=== PATIENT | female | born 1990 | race Caucasian/White ===

== ENCOUNTER → 2018-09-21 | Outpatient (CLI) | payer BC ==
[~2018-09-21] VITALS: Ht 170.2 cm; Wt 147.6 kg
[~2018-09-21] MED LIST: LEXAPRO 10MG10 MG PO; MICRONASE2.5 MG PO; MOTRIN 600600 MG/TAB PO; PERCOCET 325 MG1 TA2 PO; PRENATAL VITAMI1 TA3 PO; PRENATAL1 TA1 PO
[2018-09-21 10:22] VITALS: BP 116/72; PULSE 80
== END ==
LOC: LIGHT 09:54
DX: Z76.89 Persons encountering health services in other specified circumstances (principal); E66.01 Morbid (severe) obesity due to excess calories; Z68.43 Body mass index [BMI] 50.0-59.9, adult; Z71.3 Dietary counseling and surveillance
CPT/HCPCS: G0463

== ENCOUNTER → 2018-10-10 | Outpatient (CLI) | payer BC ==
[~2018-10-10] VITALS: Ht 170.2 cm; Wt 146.3 kg
== END ==
LOC: LIGHT 09-26 15:58
DX: E88.81 Metabolic syndrome and other insulin resistance (principal); R73.01 Impaired fasting glucose; F32.9 Major depressive disorder, single episode, unspecified; E66.01 Morbid (severe) obesity due to excess calories; Z68.43 Body mass index [BMI] 50.0-59.9, adult; Z71.3 Dietary counseling and surveillance

== ENCOUNTER → 2018-12-22 | Outpatient (CLI) | payer BC ==
[~2018-12-22] VITALS: Ht 170.2 cm; Wt 144.9 kg
[~2018-12-22] MED LIST changes: +VYVANSE30 MG PO
[2018-12-22 14:05] VITALS: BP 118/68; PULSE 100
== END ==
LOC: LIGHT 12-08 15:39
DX: R73.01 Impaired fasting glucose (principal); F50.81 Binge eating disorder; F32.9 Major depressive disorder, single episode, unspecified; E66.01 Morbid (severe) obesity due to excess calories; Z68.43 Body mass index [BMI] 50.0-59.9, adult; Z71.3 Dietary counseling and surveillance
CPT/HCPCS: G0463

== ENCOUNTER → 2018-12-26 | Outpatient (CLI) | payer BC | LOC: LIGHT 09:04 | DX: R73.01 Impaired fasting glucose (principal); F50.81 Binge eating disorder; F32.9 Major depressive disorder, single episode, unspecified; E66.9 Obesity, unspecified; Z68.43 Body mass index [BMI] 50.0-59.9, adult; Z71.3 Dietary counseling and surveillance ==

== ENCOUNTER → 2019-08-10 | Outpatient (CLI) | payer BC ==
[~2019-08-10] VITALS: Ht 170.2 cm; Wt 145.6 kg
[2019-08-10 11:26] VITALS: BP 126/70; PULSE 80
== END ==
LOC: LIGHT 04-20 13:50
DX: E66.01 Morbid (severe) obesity due to excess calories (principal); Z68.43 Body mass index [BMI] 50.0-59.9, adult; Z33.1 Pregnant state, incidental
CPT/HCPCS: G0463

== ENCOUNTER → 2019-10-30 | Outpatient (CLI) | payer BC | LOC: DIA.ED | DX: O24.419 Gestational diabetes mellitus in pregnancy, unspecified control (principal) | CPT/HCPCS: G0108 ==

== ENCOUNTER → 2019-11-13 | Outpatient (CLI) | payer BC | LOC: DIA.ED | DX: O24.419 Gestational diabetes mellitus in pregnancy, unspecified control (principal) | CPT/HCPCS: G0108 ==

== ENCOUNTER → 2019-12-06 | Outpatient (CLI) | payer BC | LOC: DIA.ED 11-29 10:45 | DX: O24.419 Gestational diabetes mellitus in pregnancy, unspecified control (principal) | CPT/HCPCS: G0108 ==

== ENCOUNTER → 2020-01-03 | Outpatient (CLI) | payer BC | LOC: DIA.ED 12-25 | DX: O24.419 Gestational diabetes mellitus in pregnancy, unspecified control (principal); Z79.4 Long term (current) use of insulin | CPT/HCPCS: G0108 ==

== ENCOUNTER 2020-01-17 16:46 | Outpatient (CLI) | payer BC ==
[~2020-01-17] VITALS: Ht 170.2 cm; Wt 155.0 kg
[2020-01-17] MEDS ORDERED: LEVEMIR SQ (17:34)
[2020-01-17] MEDS ORDERED: PRILOSEC10 MG PO (17:35)
[2020-01-17] MEDS ORDERED: PRENATAL TABLET PO (17:36)
[2020-01-17 18:00] VITALS: BP 122/64; PULSE 108; TEMP 98.9
[2020-01-17 18:10] VITALS: BP 116/62; PULSE 100
--- NOTE | 2020-01-17 18:11 | NUR ---
PT HERE FOR EXTENDED MONITORING DUE TO BPP 4/8 IN OFFICE. PT NOT FEELING BABY MOVE. FHT'S FOUND IN THE 130-140'S WITH MODERATE VARIABILITY AND ACCELS. PT REPORTS SHE STARTED FEELING THE BABY MOVE WHEN SHE WAS BEING ADMITTED TO THE HOSPITAL. ASSESSMENT COMPLETED. PT TO BE DISCHARGD TO HOME AND TO FOLLOW UP WITH MFM ON WEDNESDAY PER DR LUONG.
== END 2020-01-17 18:20 | disposition home or self-care (01) ==
LOC: LDRO 16:46 → LDR 17:54 → LDRO 18:20
DX: O36.8130 Decreased fetal movements, third trimester, not applicable or unspecified (principal); Z3A.37 37 weeks gestation of pregnancy
CPT/HCPCS: OP

== ENCOUNTER → 2020-01-26 | Outpatient (CLI) | payer BC ==
[~2020-01-26] MED LIST changes: +IBU800 M1 PO; +LEVEMIR SQ; +PRENATAL TABLET PO; +PRILOSEC10 MG PO
== END | disposition still patient (30) ==
LOC: ZCOL.LAB 08:00
DX: Z20.828 Contact with and (suspected) exposure to other viral communicable diseases (principal)

== ENCOUNTER 2020-01-29 05:13 | Inpatient (IN) | payer BC ==
[~2020-01-29] VITALS: Ht 170.2 cm; Wt 155.5 kg
[2020-01-29] VITALS (25 sets, daily range): BP systolic 16–185; BP diastolic 44–97; PULSE 70–100; TEMP 97–98
[~2020-01-29 05:13] MED LIST changes: -IBU800 M1 PO
--- NOTE | 2020-01-29 05:20 | NUR ---
Pt arrived on unit ambulatory and with complaints of SROM. Pt reports contractions started shortly after SROM. Pt denies any vaginal bleeding and report normal movement. EFM and toco monitors started. Vital signs WNL. SVE by this RN with positive amnio-trace. Information reviewed with Dr. Cain. Labor admission orders received. Plan of care reviewed with pt and at the bedside.
--- NOTE | 2020-01-29 06:20 | NUR ---
BEDSIDE REPORT GIVEN BY STEFFANY Hopper RN
[2020-01-29 07:39] LABS: HEMOGLOBIN 11.5 g/dl (12.5-16.0); MEAN CELL VOLUME 87 fl (80.0-100.0); MEAN CORPUSCULAR HEMOGLOBIN 28 pg (27.0-31.0); MEAN CORPUSCULAR HGB CONC 33 g/dl (33.0-37.0); MEAN PLATELET VOLUME 10.6 fl (7.4-10.4); PLATELET COUNT 307 K/mm3 (130-400); RED BLOOD COUNT 4.06 M/mm3 (4.10-5.30); REDCELL DISTRIBUTION WIDTH-CV 14.5 % (11.5-14.5)
[2020-01-29 07:40] LABS: HEMATOCRIT 35.3 % (37.0-47.0)
--- NOTE | 2020-01-29 08:08 | NUR ---
IUPC, FSE PLACED BY DR MORA AT THIS TIME. TOCO ZEROED
[2020-01-29 08:40] LABS: BAND 7 % (0-10); LYMPHOCYTE 8 % (20.0-51.0); NEUTROPHILS 73 % (42.0-75.2)
[2020-01-29 08:42] LABS: HYPOCHROMIA 1+
[2020-01-29 08:44] LABS: PLATELET ESTIMATE NORMAL (NORMAL)
--- NOTE | 2020-01-29 09:10 | NUR ---
DR MORA AT BEDSIDE. KAYLYN BRAN REMOVED IUPC DUE TO MISPLACEMENT. DR MORA ODERED TO PUT ON TOCO AFTER EPIDURAL PLACEMENT. PATIENT BREATHING AND YELLING THROUGH CONTRACTIONS FROM [id number] EVERY 2-3 MINUTES LASTING 50-60 SECONDS
--- NOTE | 2020-01-29 09:28 | NUR ---
PATIENT SITTING UP AT EDGE OF BED FOR EPIDURAL #2 AT 0910- TEST DOSE AT 0928. PATIENT TO BACK AT 0935- SVE COMPLETE PLUS 2, PATIENT YELLING. THIS NURSE ORDERE ROSE MARY HERNANDEZ TO CALL DR MORA FOR DELIVERY. YINA, RN, ALEKSANDR, RN, RAMON, RN, AND CINTHIA Ford RN IN ROOM. SPON DELIVERY AT 0936 DELIVERED BY KAYLYN BRAN. LOOSE NUCHAL REDUCED BY YINA. CORD CUT AND CLAMPED BY YINA PATIÑO. VIABLE FEMALE IN CARE OF KAYLYN NAVARRO. DR MORA HERE AT 0948- PLACENTA SPON DELIVERED AT 0949. OXYTOCIN AT 333 MLS/ HR. FUNDAL MASSAGE PROVIDED. 1ST DEGREE REPAIRED BY DR MORA. ICE PACK TO PERINEUM. RECOVERY STARTED AT 1000
--- NOTE | 2020-01-29 11:45 | NUR ---
PATIENT AMBULATED TO BATHROOM, NEW GOWN, PANTIES AND PAD PROVIDED. BELEN CARE PROVIDED. PATIENT AMBULATED TO 207
[2020-01-30 04:30] VITALS: BP 113/53; BP 136/64; PULSE 91; PULSE 94; TEMP 97.2; TEMP 97.7
[2020-01-30 07:00] VITALS: BP 126/89; PULSE 92; TEMP 97.2
--- NOTE | 2020-01-30 07:00 | NUR ---
Ambulates to the bathroom and back. 0714 Ibuprofen 800 mg given for pain as ordered.
--- NOTE | 2020-01-30 07:15 | NUR ---
Blood sugar done by patient. Blood sugar 115.
--- NOTE | 2020-01-30 09:26 | NUR ---
Initial visit; Parents thanked Senior Staff Accountant for offering congratulations and God's blessings for the of their daughter. Senior Staff Accountant thanked family for choosing [facility].
--- NOTE | 2020-01-30 13:00 | NUR ---
Rests in bed, alert. Denies any needs at this time.
--- NOTE | 2020-01-30 14:30 | NUR ---
Reports blood sugar at 123 two hours after eating.
--- NOTE | 2020-01-30 15:00 | NUR ---
Request to have baby to nursery. States would like to take a nap.
[2020-01-30 17:15] VITALS: BP 129/84; PULSE 86; TEMP 97.1
--- NOTE | 2020-01-30 17:15 | NUR ---
Rests on edge of bed, request medication. 1729 Ibuprofen 800 mg given per request and as ordered.
[2020-01-30 20:30] VITALS: BP 134/95; PULSE 94; TEMP 97.5
--- NOTE | 2020-01-30 21:21 | NUR ---
2030 PT REPORTS HER BS IS 128
[2020-01-31 07:00] VITALS: BP 122/89; PULSE 105; TEMP 98.2
[2020-01-31] MEDS ORDERED: IBU800 M1 PO (10:40)
== END 2020-01-31 11:24 | disposition home or self-care (01) | DRG 807 ==
LOC: LDRO 05:13 → LDR 05:20 → OB 11:44
PROVIDERS: ADMIT Student in an Organized Health Care Education/Training Program
PROC: 10E0XZZ Delivery of Products of Conception, External Approach (ICD-10-PCS; principal; 2020-01-29)
PROC: 0HQ9XZZ Repair Perineum Skin, External Approach (ICD-10-PCS; 2020-01-29)
DX: O99.824 Streptococcus B carrier state complicating childbirth (principal); Z37.0 Single live birth; O99.214 Obesity complicating childbirth; E66.01 Morbid (severe) obesity due to excess calories; O99.344 Other mental disorders complicating childbirth; O24.420 Gestational diabetes mellitus in childbirth, diet controlled; O70.0 First degree perineal laceration during delivery; F41.9 Anxiety disorder, unspecified; Z3A.38 38 weeks gestation of pregnancy
CPT/HCPCS: J2590; J2795; J3370; J7030; J7050